=== PATIENT | female | born 1970 | race Hispanic/Latino ===

== ENCOUNTER 2023-04-24 06:27 | Emergency (ER) | payer SELFPAY ==
[2023-04-24] MEDS ORDERED: Famotidine 20 MG TAB ONE (06:58)
[2023-04-24 07:04] LABS: #Eosinphils 0.1 thou/uL (0.0-0.7); #Monocytes 0.4 thou/uL (0.11-0.59); #Neutrophils 3.6 thou/uL (1.40-6.50); %Basophils 0.3 % (0.0-1.0); %Eosinophils 0.7 % (0.0-10.0); %Lymphocytes 42.4 % (21.0-51.0); %Monocytes 5.7 % (0.0-10.0); %Neutrophils 50.8 % (42.0-75.0); Hematocrit 45.5 % (36.0-47.0); Hemoglobin 15.2 g/dL (12.0-16.0); Mean Corpuscular HGB CONC 33.4 g/dL (32.0-36.0); Mean Corpuscular Hemoglobin 29.7 pg (27.0-31.0); Mean Corpuscular Volume 88.9 fl (78.0-98.0); Mean Platelet Volume 9.6 fL (7.4-10.4); Platelet Count 344 10x3/uL (130-400); RBC Distribution Width 12.5 % (11.5-14.5); Red Blood Cell (RBC) Count 5.12 mill/uL (4.20-5.40); White Blood Cell (WBC) Count 7.2 10x3/uL (4.8-10.8)
[2023-04-24] MEDS ORDERED: Lidocaine 2% Viscous Solution 10 ML, Aluminum & Magnesium Hydroxide 30 ML SSW SCH (07:15)
[2023-04-24 07:33] LABS: ALT (SGPT) 33 U/L (8-55); AST (SGOT) 24 U/L (5-34); Albumin 4.2 g/dL (3.5-5.0); Alkaline Phosphatase 94 U/L (40-110); Anion Gap 12 mmol/L (10-20); BUN (Urea Nitrogen) 13 mg/dL (7.0-18.7); Bilirubin, Total 0.5 mg/dL (0.2-1.2); Calc. Creatinine Clearance 0 mL/min (70-130); Calcium 9.2 mg/dL (7.8-10.44); Carbon Dioxide 23 mmol/L (22-29); Chloride 107 mmol/L (98-107); Estimated GFR 106; Globulin 3.7 g/dL (2.4-3.5); Glucose 96 mg/dL (70-105); Lipase 44 U/L (8-78); Magnesium 2.1 mg/dL (1.6-2.6); Potassium 4.1 mmol/L (3.5-5.1); Protein, Total 7.9 g/dL (6.0-8.3); Sodium 138 mmol/L (136-145)
[2023-04-24 07:36] LABS: Troponin I Less than 0.010 ng/mL (< 0.028)
== END 2023-04-24 08:58 | disposition home or self-care (01) ==
LOC: ERS 06:27
DX: K21.00 Gastro-esophageal reflux disease with esophagitis, without bleeding (principal); I10 Essential (primary) hypertension
CPT/HCPCS: 36415; 71045; 80053; 83690; 83735; 83880; 84443; 84484; 85025; 93005

== ENCOUNTER 2023-04-28 05:07 | Emergency (ER) | payer SELFPAY ==
[2023-04-28] MEDS ORDERED: Acetaminophen 500 MG TAB ONE (06:17)
[2023-04-28] MEDS ORDERED: Dexamethasone 10 MG/ML VIAL ONE (06:17)
[2023-04-28 06:57] LABS: SARS-CoV-2 NAA Rapid Test Not Detected (NotDetected)
== END 2023-04-28 07:34 | disposition home or self-care (01) ==
LOC: ERS 05:07
DX: J02.9 Acute pharyngitis, unspecified (principal); I10 Essential (primary) hypertension
CPT/HCPCS: 87081; 87430; 99283; J1100

== ENCOUNTER 2023-05-07 08:38 | Emergency (ER) | payer OTHER, SELFPAY ==
[2023-05-07] MEDS ORDERED: Acetaminophen 500 MG TAB ONE (09:21)
== END 2023-05-07 11:10 | disposition home or self-care (01) ==
LOC: ERS 08:38
DX: M94.0 Chondrocostal junction syndrome [Tietze] (principal); Z55.6 Problems related to health literacy; Z75.8 Other problems related to medical facilities and other health care; I10 Essential (primary) hypertension; V89.2XXA Person injured in unspecified motor-vehicle accident, traffic, initial encounter
CPT/HCPCS: 71045; 93005

== ENCOUNTER 2024-02-06 06:43 | Emergency (ER) | payer SELFPAY ==
[2024-02-06] MEDS ORDERED: Ketorolac Tromethamine 30 MG (1 mL) VIAL ONE (07:09)
== END 2024-02-06 07:17 | disposition home or self-care (01) ==
LOC: ERS 06:43
DX: H60.93 Unspecified otitis externa, bilateral (principal); I10 Essential (primary) hypertension
CPT/HCPCS: 96372; 99282; J1885